=== PATIENT | female | born 1985 | race Caucasian/White ===

== ENCOUNTER 2017-02-09 21:36 | Emergency (ER) | payer BC, OTHER ==
[2017-02-09] MEDS ORDERED: Albuterol/Ipratropium 3.0-0.5 MG/3 ML Neb Soln NEB ONE (21:52)
[2017-02-09] MEDS ORDERED: methylPREDNISolone Sodium Succinate 125 MG/2 ML SDV IM ONE (21:53)
[2017-02-09] MEDS ORDERED: Take Home: Doxycycline 100 MG Tab, 4 Tab Pack PO ONE (22:59)
[2017-02-09] MEDS ORDERED: Take Home: Albuterol 6.7 GM Inhaler, 1 Inhaler Pack INH ONE (22:59)
[2017-02-09 23:57] VITALS: BP 99/76
--- NOTE | 2017-02-14 00:25 | ER ---
Date of Service: 02/09/2017 SUBJECTIVE: Mindy presents to the emergency room with complaints of severe cough for 3 days. She states that she has great amount of difficulty with stopping coughing. She states that the cough is nonproductive. She states it feels as though her throat is swollen. She states that she has not experienced any fever at home. PAST MEDICAL HISTORY: Denies. MEDICATIONS: None. ALLERGIES: NKDA. REVIEW OF SYSTEMS: General: Denies any fever or chills. HEENT: Positive for sore throat and rhinorrhea and congestion. Respiratory: Positive for cough and mild shortness of breath. Cardiac: Denies any substernal chest pain. No jaw, arm, neck, or back pain. GI: No nausea, vomiting, or diarrhea. No melena, hematochezia, or hematemesis. : Denies any dysuria. Musculoskeletal: No myalgias or arthralgias. Neurologic: No fainting blackouts. PHYSICAL EXAMINATION: General: The patient is a 31-year-old female patient, who is acutely anxious. Vital Signs: Pulse rate 127, temperature is 37.3, respiratory rate is 24, O2 saturations 98% on room air, blood pressure is 99/76. Skin: Warm, pale, and dry. HEENT: Head is normocephalic, atraumatic. Eyes, PERRLA. Extraocular intact. Ears, TMs are clear. Mouth, oral mucosa is moist. No erythema or exudate noted in the hypopharynx. Neck: Supple without masses. There is no lymphadenopathy. Lungs: Diminished in the bases. Heart: Regular rhythm. She is tachycardic. Abdomen: Soft and nontender. There is no hepatosplenomegaly or masses noted. Extremities: Without edema. Neurologic: She is alert and oriented, answers all questions appropriately. Her speech is fluent. Her gait is within normal limits. LABORATORY DATA: Rapid strep was performed and was negative. Influenza A and B were obtained and were negative. PA and lateral chest x-ray were obtained. She had evidence of some increased opacification of the right middle lobe consistent with acute infiltrate. EMERGENCY ROOM COURSE: The patient was given a DuoNeb breathing treatment. She was also given Solu-Medrol 125 mg IM. She remained stable in my care in the emergency room. ASSESSMENT: 1. Community-acquired pneumonia. 2. Reactive airway. PLAN: The patient was started on doxycycline 100 mg twice daily for 10 days. The patient was also started on albuterol inhaler 2 puffs every 4 to 6 hours as needed for cough. The patient was also started on prednisone 40 mg daily for 5 days. I would like her to follow up in the clinic in the next 5 to 7 days, sooner if not gradually improving. All questions were answered. Drink plenty of fluids. MWK: 02/13/2017 20:39:58 MODL: 02/14/2017 00:20:31 /[id number]
== END 2017-02-09 23:15 | disposition home or self-care (01) ==
LOC: VM.ED 21:36
DX: J18.9 Pneumonia, unspecified organism (principal); J45.909 Unspecified asthma, uncomplicated
CPT/HCPCS: 71020; 87081; 87804; 87880; 94640; 96372; 99285; A9270; J2930

== ENCOUNTER 2021-10-20 02:33 | Emergency (ER) | payer BC ==
[2021-10-20 03:29] LABS: CORONAVIRUS COVID-19 NAA NEGATIVE (NEGATIVE); RESPIRATORY SYNCYTIAL VIR NAA NEGATIVE (NEGATIVE)
[2021-10-20] MEDS ORDERED: Take Home: Albuterol 18 GM Inhaler, 1 Inhaler Pack INH PRN (03:33)
[2021-10-20] MEDS ORDERED: Take Home: Doxycycline 100 MG Tab, 4 Tab Pack PO ONE (03:33)
[2021-10-20] MEDS ORDERED: predniSONE 20 MG Tab PO ONE (03:38)
[2021-10-20 05:03] VITALS: BP 132/84; PULSE 76
--- NOTE | 2021-10-20 06:22 | CR ---
[id number] RAD/RAD Chest Portable EXAM: RAD Chest Portable INDICATION: CHEST CONGESTION COMPARISON: None. DISCUSSION/IMPRESSION: Cardiomediastinal silhouette is normal in size and contour. Lungs are clear. No pleural effusion or pneumothorax. Jefferson Peng MD 10/20/21 0621 Thank you for allowing us to participate in the care of your patient.
--- NOTE | 2021-10-21 06:36 | EDM.PDOC ---
ED HPI GENERAL MEDICAL PROBLEM - General Chief Complaint: Respiratory Problem Stated Complaint: shortness of breath Time Seen by Provider: 10/20/21 02:40 Source of Information: Reports: Patient History Limitations: Reports: No Limitations - History of Present Illness INITIAL COMMENTS - FREE TEXT/NARRATIVE: Pt. presents to ER with complaints of cough, sore throat, sinus congestion, and difficulty taking a deep breath. Pt. states that she was at the [facility] for an event this weekend and states that she started feeling poorly after that. She has not had any loss of taste or smell. No nausea, vomiting, or diarrhea. Denies any abdominal pain. Pt. was seen in the ER perviously with similar symptoms, thought to have atypical pneumonia at that time which was treated with oral antibiotics. She states that she recovered without sequelae. Onset: Today Onset Date: 10/21/21 Location: Reports: Chest, Generalized Treatments GREASER AND OILER: Reports: Other Medication(s) Other Treatments GREASER AND OILER: Excedrin - Related Data Allergies Allergy/AdvReac Type Severity Reaction Status Date / Time No Known Allergies Allergy Verified 02/09/17 23:53 Home Meds: Home Meds Codeine Phosphate/Guaifenesin [Cheratussin AC Syrup] 5 ml PO Q4H PRN 02/09/17 [History] Methylprednisolone [IJD: Methylprednisolone] 4 mg PO DAILY 02/09/17 [History] Past Medical History - Past Health History Medical/Surgical History: Denies Medical/Surgical History - Past Surgical History HEENT Surgical History: Reports: Tonsillectomy Social & Family History - Family History Family Medical History: No Pertinent Family History - Tobacco Use Tobacco Use Status *Q: Never Tobacco User - Recreational Drug Use Recreational Drug Use: No ED ROS GENERAL - Review of Systems Review Of Systems: Comprehensive ROS is negative, except as noted in HPI. ED EXAM, GENERAL - Physical Exam Exam: See Below Exam Limited By: No Limitations General Appearance: Alert, WD/WN, No Apparent Distress Eye Exam: Bilateral Eye: EOMI Throat/Mouth: Normal Inspection, Normal Lips, Normal Teeth, Normal Gums, Normal Oropharynx, Normal Voice, No Airway Compromise Head: Atraumatic, Normocephalic Neck: Normal Inspection, Supple, Non-Tender, Full Range of Motion Respiratory/Chest: No Respiratory Distress, Lungs Clear, No Accessory Muscle Use, Chest Non-Tender, Decreased Breath Sounds Cardiovascular: Normal Peripheral Pulses, Regular Rate, Rhythm, No Edema, No Gallop, No JVD Peripheral Pulses: 4+: Radial (L) GI/Abdominal: Soft, Non-Tender, No Distention, No Mass (Female) Exam: Deferred Rectal (Female) Exam: Deferred Back Exam: Normal Inspection, Full Range of Motion Extremities: Normal Inspection, Normal Range of Motion, Non-Tender, No Pedal Edema, Normal Capillary Refill Neurological: Alert, Oriented, CN II-XII Intact, Normal Cognition, Normal Reflexes, No Motor/Sensory Deficits Psychiatric: Normal Affect, Normal Mood Skin Exam: Warm, Dry, Intact, Normal Color, No Rash Lymphatic: No Adenopathy #1 Interpretation Rhythm: NSR Boyce: Normal P-Wave: Present QRS: Normal ST-T: Normal QT: Normal Course - Vital Signs Last Recorded V/S: Last Vital Signs Temp 36.4 C 10/20/21 02:35 Pulse 76 10/20/21 02:35 Resp 26 H 10/20/21 02:35 BP 132/84 10/20/21 02:35 Pulse Ox 97 10/20/21 02:35 - Orders/Labs/Meds Labs: Laboratory Tests 10/20/21 Range/Units 02:40 Influenza Type A RNA Negative (NEGATIVE) RSV RNA (INAAT) Negative (NEGATIVE) Influenza Type B RNA Negative (NEGATIVE) SARS-CoV-2 RNA (RODRIGO) Negative (NEGATIVE) Meds: Medications Discontinued Medications Generic Name Dose Route Start Last Admin Trade Name Freq PRN Reason Stop Dose Admin Albuterol 1 packet 10/20/21 03:33 10/20/21 03:50 Take Home: Albuterol 18 Gm Inhaler, 1 Inhaler Pack INH 18 gm Q4H PRN Administration Shortness of Breath Doxycycline Monohydrate 1 packet 10/20/21 03:33 10/20/21 03:48 Take Home: Doxycycline 100 Mg Tab, 4 Tab Pack PO 10/20/21 03:34 1 packet ONETIME ONE Administration Prednisone 40 mg 10/20/21 03:38 10/20/21 03:48 Prednisone 20 Mg Tab PO 10/20/21 03:39 40 mg ONETIME ONE Administration - Radiology Interpretation Free Text/Narrative:: No obvious pathology noted on chest x-ray Departure - Departure Time of Disposition: 03:35 Disposition: Home, Self-Care 01 Clinical Impression: Pneumonitis - Discharge Information Instructions: Albuterol inhalation aerosol, Doxycycline tablets or capsules, Pneumonitis, Prednisone tablets Referrals: PCP,None [Primary Care Provider] - Forms: ED Department Discharge Additional Instructions: Home to rest. Off work tomorrow. Prednisone 40mg once daily for 6 days total. Doxycycline 100mg 1 tab twice daily for 10 days Albuterol inhaler 2 puffs every 4-6 hours as needed for trouble breathing Recheck in clinic in 10-14 days, sooner if not gradually improving. Sepsis Event Note (ED) - Evaluation Sepsis Screening Result: No Definite Risk - Problem List Review Problem List Initiated/Reviewed/Updated: Yes - Assessment/Plan Plan: Pt. was discharged. She was started on a course of doxycycline as well as prednisone and an inhaler. Chest xray was negative, but she is clearly dyspneic, likely secondary to exposure to he find dust and fumes at the [facility] facility, a frequent complaint of visitors there. Covid, influenza A and B, and RSV were all negative. EKG did not show any acute pathology. Advised to follow-up in clinic in 7-10 days, sooner if not gradually improving.
== END 2021-10-20 03:55 | disposition home or self-care (01) ==
LOC: VM.ED 02:33
DX: J18.9 Pneumonia, unspecified organism (principal); Z20.822 Contact with and (suspected) exposure to COVID-19
CPT/HCPCS: 0241U; 71045; 93005; 93010; 99284; 99285-25; A9270-GY; J7512

== ENCOUNTER 2022-04-11 18:16 | Emergency (ER) | payer BC ==
[2022-04-11] MEDS ORDERED: SUMAtriptan 50 MG Tab PO ONE (18:28)
[2022-04-11 18:29] VITALS: BP 133/67; PULSE 81
== END 2022-04-11 18:49 | disposition home or self-care (01) ==
LOC: VM.ED 18:16
DX: G43.009 Migraine without aura, not intractable, without status migrainosus (principal); S16.1XXA Strain of muscle, fascia and tendon at neck level, initial encounter
CPT/HCPCS: 99283; A9270-GY

== ENCOUNTER 2022-04-12 04:11 | Emergency (ER) | payer BC ==
[2022-04-12] MEDS ORDERED: Orphenadrine 60 MG/2 ML Inj IM ONE (04:17)
[2022-04-12] MEDS ORDERED: predniSONE 20 MG Tab PO ONE (04:17)
[2022-04-12] MEDS ORDERED: Take Home: Cyclobenzaprine 10 MG Tab, 4 Tab Pack PO ONE (05:39)
[2022-04-12 07:39] VITALS: BP 137/78; PULSE 76
== END 2022-04-12 05:48 | disposition home or self-care (01) ==
LOC: VM.ED 04:11
DX: M62.838 Other muscle spasm (principal)
CPT/HCPCS: 96372; 99283; A9270-GY; J2360; J7512

== ENCOUNTER 2022-04-25 09:36 | Emergency (ER) | payer BC ==
[2022-04-25 10:50] VITALS: BP 135/94; PULSE 88
== END 2022-04-25 10:15 | disposition home or self-care (01) ==
LOC: VM.ED 09:36
DX: H72.91 Unspecified perforation of tympanic membrane, right ear (principal)
CPT/HCPCS: 99282; 99283